=== PATIENT | female | born 1950 | race Caucasian/White ===

== ENCOUNTER 2024-10-25 06:13 | Day surgery (SDC) | payer MEDICARE, OTHER ==
[2024-10-25] MEDS ORDERED: LIDOCAINE 1% INJ 50 ML MDV IJ ONE (06:57)
[2024-10-25] MEDS ORDERED: ANESTHESIA TRAY IN PYXIS 1 EA TRAY MC ONE (06:57)
[2024-10-25] MEDS ORDERED: LIDOCAINE 1%-EPI 1:100,000 20 ML VIAL ONE (06:58)
[2024-10-25] MEDS ORDERED: FENTANYL PF 100MCG/2ML AMPUL ONE (07:28)
[2024-10-25] MEDS ORDERED: FAMOTIDINE/PF INJ 20 MG/2 ML VIAL IV ONE (07:28)
== END 2024-10-25 11:00 | disposition home or self-care (01) ==
LOC: DS 06:13
PROVIDERS: ATTEND Podiatrist Foot & Ankle Surgery
DX: M67.472 Ganglion, left ankle and foot (principal); M20.42 Other hammer toe(s) (acquired), left foot; I10 Essential (primary) hypertension; E78.00 Pure hypercholesterolemia, unspecified; Z79.899 Other long term (current) drug therapy; Z98.890 Other specified postprocedural states
CPT/HCPCS: 28092; 28285; 73620; 87070; 87102; A6402; C1713; J0690; J1308; J2704; J3010; J3490; J7030; 88304-TC